=== PATIENT | female | born 2000 | race African-American/Black ===

== ENCOUNTER 2025-05-24 07:31 | Emergency (ER) | payer MEDICAID, OTHER ==
[~2025-05-24] VITALS: Ht 172.7 cm; Wt 136.1 kg
[2025-05-24 07:39] VITALS: BP 150/99; TEMP 98.3; O2SAT 98
[2025-05-24] MEDS ORDERED: DOXY100C2 PO (07:46)
[2025-05-24] MEDS ORDERED: CEPH-570 PO (07:46)
== END 2025-05-24 08:02 | disposition home or self-care (01) ==
LOC: ER 07:34
DX: L03.032 Cellulitis of left toe (principal); I10 Essential (primary) hypertension; E11.9 Type 2 diabetes mellitus without complications; Z88.8 Allergy status to other drugs, medicaments and biological substances